=== PATIENT | male | born 1995 | race Caucasian/White ===

== ENCOUNTER 2024-10-05 11:28 | Emergency (ER) | payer OTHER ==
[~2024-10-05] VITALS: Ht 170.2 cm; Wt 80.0 kg
[~2024-10-05 11:28] MED LIST: ALBU8.5H8 PUFF; COMBIH PUFF
[2024-10-05 11:36] VITALS: TEMP 97.5
[2024-10-05] MEDS: PredniSONE 20 MG TABLET PO ONE (12:55)
[2024-10-05] MEDS: KETOROLAC TROMETHAMINE 30 MG/ML VIAL IM ONE (12:56)
[2024-10-05] MEDS: LIDOCAINE 5% TRANSDERMAL PATCH TD ONE (12:57)
[2024-10-05] MEDS: HYDROCODONE/ACETAMINOPHEN 5-325 MG TABLET PO ONE (13:52)
[2024-10-05] MEDS ORDERED: IBUP-1492 PO (15:11)
[2024-10-05] MEDS ORDERED: CYCL-448 PO (15:11)
[2024-10-05 15:15] VITALS: BP 112/67; PULSE 70; RESP 16; O2SAT 98
== END 2024-10-05 16:05 | disposition home or self-care (01) ==
LOC: EMS 11:28
DX: S13.4XXA Sprain of ligaments of cervical spine, initial encounter (principal); J45.909 Unspecified asthma, uncomplicated; Z88.0 Allergy status to penicillin; X58.XXXA Exposure to other specified factors, initial encounter; Y93.89 Activity, other specified; Y92.89 Other specified places as the place of occurrence of the external cause; Y99.8 Other external cause status
CPT/HCPCS: 99284; 96372; J1885; J7512

== ENCOUNTER → 2024-10-14 | Emergency (ER) | payer OTHER ==
[~2024-10-14] VITALS: Ht 167.6 cm; Wt 75.0 kg
[~2024-10-14] MED LIST changes: -ALBU8.5H8 PUFF; -COMBIH PUFF; +CYCL-448 PO; +IBUP-1492 PO
[2024-10-14 16:19] VITALS: BP 128/71; PULSE 95; RESP 18; TEMP 97.8; O2SAT 99
== END | disposition left against medical advice (07) ==
LOC: EMS 15:44
DX: Z53.21 Procedure and treatment not carried out due to patient leaving prior to being seen by health care provider (principal)

== ENCOUNTER 2024-10-15 07:48 | Emergency (ER) | payer OTHER ==
[~2024-10-15] VITALS: Ht 167.6 cm; Wt 77.3 kg
[2024-10-15 07:55] VITALS: BP 104/51; PULSE 84; RESP 16; TEMP 98.2; O2SAT 100
== END 2024-10-15 08:04 | disposition home or self-care (01) ==
LOC: EMS 07:48
DX: S16.1XXA Strain of muscle, fascia and tendon at neck level, initial encounter (principal); J45.909 Unspecified asthma, uncomplicated; Z88.0 Allergy status to penicillin; X58.XXXA Exposure to other specified factors, initial encounter; Y93.89 Activity, other specified; Y92.89 Other specified places as the place of occurrence of the external cause; Y99.8 Other external cause status
CPT/HCPCS: 99281; Z7502

== ENCOUNTER 2025-06-07 17:51 | Emergency (ER) | payer SELFPAY | END 2025-06-07 18:14 | disposition left against medical advice (07) | LOC: EMS 17:51 | DX: M79.642 Pain in left hand (principal); Z53.21 Procedure and treatment not carried out due to patient leaving prior to being seen by health care provider | CPT/HCPCS: 99281; Z7502 ==